=== PATIENT | male | born 1970 | race African-American/Black ===

== ENCOUNTER 2019-03-20 10:50 | Outpatient (RCR) | payer OTHER | END 2019-04-23 10:30 | disposition home or self-care (01) | LOC: WSOH 10:50 | DX: S56.811A Strain of other muscles, fascia and tendons at forearm level, right arm, initial encounter (principal); S06.0X0A Concussion without loss of consciousness, initial encounter; S00.93XA Contusion of unspecified part of head, initial encounter; R51 Headache; W17.89XA Other fall from one level to another, initial encounter; Y93.89 Activity, other specified; Y92.69 Other specified industrial and construction area as the place of occurrence of the external cause; Y99.0 Civilian activity done for income or pay; Z79.899 Other long term (current) drug therapy ==